=== PATIENT | female | born 1990 | race Hispanic/Latino ===

== ENCOUNTER 2016-09-10 03:27 | Outpatient (CLI) | payer OTHER ==
[~2016-09-10] VITALS: Ht 152.4 cm; Wt 69.0 kg
[2016-09-10 03:39] VITALS: BP 124/66
== END 2016-09-10 06:28 | disposition home or self-care (01) ==
LOC: M LDO 03:27
PROVIDERS: ATTEND Obstetrics & Gynecology
DX: O47.1 False labor at or after 37 completed weeks of gestation (principal); Z3A.37 37 weeks gestation of pregnancy

== ENCOUNTER 2016-09-13 12:01 | Inpatient (IN) | payer OTHER ==
[2016-09-13] VITALS (25 sets, daily range): BP systolic 97–151; BP diastolic 51–98
[~2016-09-13] VITALS: Ht 154.9 cm; Wt 63.0 kg
[2016-09-13] MEDS ORDERED: PRENTAB9 PO (12:23)
[2016-09-13] MEDS ORDERED: PENICILLIN G POTASSIUM IV 5 MU in D5W MINI-BAG PLUS 100 ML IV STA (12:40)
[2016-09-13] MEDS ORDERED: LACTATED RINGER'S 1000 ML IV STA (12:40)
[2016-09-13 13:58] LABS: MEAN CORPUSCULAR HEMOGLOBIN 27.6 pg (27.0-33.0); MEAN CORPUSCULAR HGB CONC 33.1 g/dl (32.0-36.5); MEAN CORPUSCULAR VOLUME 83.5 fl (80.0-96.0); RED CELL DISTRIBUTION WIDTH 14.2 % (11.5-14.5); WHITE BLOOD COUNT 23.1 K/mm3 (4.0-10.0)
[2016-09-13] MEDS ORDERED: FENTANYL 2MCG/ML ROPIVACAINE 0.2% NACL 250 ML CADD As Ordered ONE (14:11)
[2016-09-13] MEDS ORDERED: OXYTOCIN 30 UNITS IN 0.9% NaCl 500ML IV BAG (J2590) As Ordered ONE (14:19)
[2016-09-13] MEDS ORDERED: EPIDURAL/PCA KEYS XX PRN ×2 (15:15→21:15)
[2016-09-13] MEDS ORDERED: ONDANSETRON 4MG/2ML VIAL (J2405) IV PRN ×4 (15:15→21:45)
[2016-09-13] MEDS ORDERED: EPIDURAL COMMENT XX SCH (15:15)
[2016-09-13] MEDS ORDERED: diphenhydrAMINE INJ 50MG/ML VIAL (J1200) IV PRN ×2 (15:15→21:15)
[2016-09-13] MEDS ORDERED: ePHEDrine SULFATE 25 MG/5 ML(5MG/ML) SYRINGE IV PRN (15:15)
[2016-09-13] MEDS ORDERED: REFRIGERATOR IV KEYS XX PRN (15:15)
[2016-09-13] MEDS ORDERED: NALOXONE INJ 0.4 MG/1 ML VIAL (J2310) IV PRN ×2 (15:15→21:15)
[2016-09-13] MEDS ORDERED: FENTANYL/ROPIVACAINE/NACL CADD 250 ML EPIDURAL SCH (15:15)
[2016-09-13] MEDS ORDERED: LACTATED RINGER'S 1000 ML IV PRN (15:15)
[2016-09-13] MEDS ORDERED: ACETAMINOPHEN 500 MG TAB PO PRN (16:30)
[2016-09-13] MEDS ORDERED: PENICILLIN G POTASSIUM IV 2.5 MU in D5W 100 ML IV SCH (16:45)
[2016-09-13] MEDS ORDERED: BICITRA 30ML SOLN UDC As Ordered ONE (18:48)
[2016-09-13] MEDS ORDERED: ceFAZolin 2 GM/D5W 50 ML IV BAG (J0690) As Ordered ONE (18:48)
[2016-09-13] MEDS ORDERED: ONDANSETRON 4MG/2ML VIAL (J2405) As Ordered ONE (19:05)
[2016-09-13] MEDS ORDERED: fentaNYL 100 MCG/2 ML INJECTION (J3010) As Ordered ONE ×4 (19:05→21:15)
[2016-09-13] MEDS ORDERED: SUCCINYLCHOLINE 100 MG/5 ML SYRINGE (J0330) As Ordered ONE (19:05)
[2016-09-13] MEDS ORDERED: PROPOFOL 200 MG/20 ML VIAL As Ordered ONE (19:05)
[2016-09-13] MEDS ORDERED: MIDAZOLAM INJ 2 MG/2 ML VIAL (J2250) As Ordered ONE (19:05)
[2016-09-13] MEDS ORDERED: dexameTHASONE 4 MG/ML 1ML VIAL (J1100) As Ordered ONE (19:05)
[2016-09-13] MEDS ORDERED: OXYTOCIN INJ 10 UNITS/ML VIAL (J2590) As Ordered ONE (19:05)
[2016-09-13] MEDS ORDERED: ROCURONIUM BROMIDE 50 MG/5 ML VIAL As Ordered ONE (19:22)
[2016-09-13] MEDS ORDERED: BICITRA 30ML SOLN UDC PO STA (19:27)
[2016-09-13 19:39] LABS: CORD GAS ABE V -5.6; CORD GAS HCO3 V 21.9 MEQ/L; CORD GAS O2 SAT V 19.7 %; CORD GAS PCO2 V 50.7 mmHg; CORD GAS PH V 7.254 UNITS; CORD GAS PO2 V 13.6 mmHg; CORD GAS SBC V 18.2 MEQ/L; CORD GAS TCO2 V 23.5 MEQ/L
[2016-09-13] MEDS ORDERED: GLYCOPYRROLATE INJ 0.2 MG/ML 2 ML VIAL As Ordered ONE (20:04)
[2016-09-13] MEDS ORDERED: KETOROLAC 60 MG/2 ML VIAL (J1885) As Ordered ONE (20:04)
[2016-09-13] MEDS: LR 1,000 ML IV SCH (20:56)
[2016-09-13] MEDS ORDERED: METHYLERGONOVINE MALEATE 0.2 MG/ML VIAL (J2210) IM PRN (21:00)
[2016-09-13] MEDS ORDERED: MEASLES,MUMPS,RUBELLA VACCINE INJ (MMR-II) (90707) SC SCH (21:00)
[2016-09-13] MEDS ORDERED: PERCOCET 5MG/325MG TAB PO PRN (21:00)
[2016-09-13] MEDS: DOCUSATE SODIUM 100 MG CAP PO SCH (21:00)
[2016-09-13] MEDS ORDERED: PROMETHAZINE 25 MG TAB PO PRN (21:00)
[2016-09-13] MEDS ORDERED: RHOGAM 300 MCG (1500 IU) INJ (J2790) IM SCH (21:00)
[2016-09-13] MEDS ORDERED: NS 1,000 ML IV SCH (21:08)
[2016-09-13] MEDS ORDERED: MORPHINE PCA 1MG/ML 100ML CADD As Ordered ONE (21:08)
[2016-09-13] MEDS ORDERED: MORPHINE PCA 1MG/ML 100ML CADD IV PRN (21:15)
[2016-09-13] MEDS ORDERED: NALBUPHINE HCL 10 MG/ML AMP (J2300) IV PRN (21:15)
[2016-09-13] MEDS: fentaNYL 100 MCG/2 ML INJECTION (J3010) IV PRN ×4 (21:15→21:30)
[2016-09-13] MEDS ORDERED: LR 1,000 ML IV SCH (21:45)
[2016-09-13] MEDS ORDERED: MORPHINE 2 MG/ML 1ML SYRINGE IV PRN (21:45)
[2016-09-14] VITALS (14 sets, daily range): BP systolic 100–129; BP diastolic 51–63
[2016-09-14] MEDS: LR 1,000 ML IV SCH ×3 (01:58→20:56)
[2016-09-14] MEDS: KETOROLAC 30 MG/ML VIAL (J1885) IV SCH ×4 (01:58→20:49)
--- NOTE | 2016-09-14 02:09 | REP ---
Clinical: Stat section without appropriate instrument cannot. Technique: Portable views to include the abdomen and pelvis. Findings: Epidural catheter identified. Bowel gas pattern is normal. No radiodense or obvious radiolucent foreign body material appreciated. Impression: No foreign body identified. Signed by Marcel Pena MD 09/14/2016 02:00 A
[2016-09-14 07:25] LABS: MEAN CORPUSCULAR HEMOGLOBIN 27.4 pg (27.0-33.0); MEAN CORPUSCULAR HGB CONC 32.5 g/dl (32.0-36.5); MEAN CORPUSCULAR VOLUME 84.1 fl (80.0-96.0); RED CELL DISTRIBUTION WIDTH 14.5 % (11.5-14.5); WHITE BLOOD COUNT 22.3 K/mm3 (4.0-10.0)
--- NOTE | 2016-09-14 08:42 | IPNPDOC ---
Text Note Date of Service The patient was seen on 09/14/16 at 08:41. NOTE SBAR from Dr Camejo this AM at 0730. Pt is POD1 s/p uterine rupture during TOLAC and bladder rupture as well. Vitals stable, no low BP or elev'd HR 6.2/19.2 UO ~75/hr a/p: Doing well despite her current CBC. However with these low of numbers I rec 2 units PRBC's, pt agrees. Orders placed, CBC 4 hrs after transfusion complete. Sessions VS,Sanna, I+O VSSanna I+O Laboratory Tests 09/13/16 13:14 Red Blood Count 4.55, Mean Corpuscular Volume 83.5, Mean Corpuscular Hemoglobin 27.6, Mean Corpuscular Hemoglobin Concent 33.1, Red Cell Distribution Width 14.2 09/14/16 07:05 Red Blood Count 2.28 L, Mean Corpuscular Volume 84.1, Mean Corpuscular Hemoglobin 27.4, Mean Corpuscular Hemoglobin Concent 32.5, Red Cell Distribution Width 14.5 Vital Signs Date Time Temp Pulse Resp B/P Pulse Ox O2 Delivery O2 Flow Rate FiO2 09/14/16 05:40 98.1 82 18 120/57 100 Room Air 09/13/16 21:15 3.0 I&O- Last 24 Hours up to 6 AM 09/14/16 06:00 Intake Total 4000 ml Output Total 3485 ml Balance 515 ml JUSTINE,FIDEL Dye MD Sep 14, 2016 08:42
[2016-09-14] MEDS: PRENATAL VITAMIN TAB PO SCH (08:45)
[2016-09-14] MEDS: DOCUSATE SODIUM 100 MG CAP PO SCH ×2 (08:45→20:49)
[2016-09-14] MEDS ORDERED: NS 1,000 ML IV SCH (08:56)
[2016-09-14] MEDS ORDERED: diphenhydrAMINE 25 MG CAP PO ONE (09:30)
[2016-09-14] MEDS ORDERED: ACETAMINOPHEN 500 MG TAB PO ONE (09:30)
[2016-09-14 19:14] LABS: MEAN CORPUSCULAR HEMOGLOBIN 28.2 pg (27.0-33.0); MEAN CORPUSCULAR HGB CONC 32.4 g/dl (32.0-36.5); MEAN CORPUSCULAR VOLUME 87.1 fl (80.0-96.0); RED CELL DISTRIBUTION WIDTH 15.5 % (11.5-14.5); WHITE BLOOD COUNT 16.7 K/mm3 (4.0-10.0)
[2016-09-15 02:04] VITALS: BP 119/60
[2016-09-15] MEDS: AMPICILLIN SOD/SULBACTAM SOD 3 GM in D5W MINI-BAG PLUS 100 ML IV SCH ×4 (04:00→21:28)
[2016-09-15] MEDS: IBUPROFEN 800 MG TAB PO SCH ×3 (04:30→21:27)
[2016-09-15] MEDS: LR 1,000 ML IV SCH ×2 (04:40→09:10)
[2016-09-15 06:12] VITALS: BP 114/54
[2016-09-15 07:48] LABS: MEAN CORPUSCULAR HEMOGLOBIN 28.4 pg (27.0-33.0); MEAN CORPUSCULAR HGB CONC 33.3 g/dl (32.0-36.5); MEAN CORPUSCULAR VOLUME 85.2 fl (80.0-96.0); RED CELL DISTRIBUTION WIDTH 14.6 % (11.5-14.5); WHITE BLOOD COUNT 18.1 K/mm3 (4.0-10.0)
--- NOTE | 2016-09-15 08:17 | IPNPDOC ---
Text Note Date of Service The patient was seen on 09/15/16 at 08:11. NOTE POD#2 s/p RLTCS c/b uterine and bladder rupture s/p transfusion of 2 units PRBC's yesterday Fever first this AM: 0300: 101.2 0400: 100.5 0600: 100.7 PLacde on Unasyn 3 Gm q6 hrs until 24 hrs afebrile S: Pt feeling well. Pain well controlled, lochia decreasing/minimal, voiding via de luna catheter - blood tinged urine, tolerating a regular diet, ambulating without difficulty. No N/V/LOCKE/CP/LP/SOB. breast feeding. O: normotensive, nml HR H: RRR no m/g/r L: CTA b/l no w/c/r/r Abd: soft, appropriately tender, U-2/fundus nontender; dressing c/d/i with no strikethrough-removed Ext: no c/c/e post transfusion HCT yesterday evening was HCT29.5, DPA328. CBC this AM with HCT 26.1, PLT 191 A/P: S/p RLTCS c/b uterine and bladder rupture, POD#2 on UNasyn for fever, s/p 2 units PRBC's. Hemodynamically stable. -Will keep de luna catheter in place for next 2 weeks at least, to be seen in the clinic by Dr Camejo in 1-2 weeks, also on Macrobid and Pyridium while leg bag de luna in place. -No further CBC's needed for HD status -Cont the Unasyn until 24 hours afebrile -Routine postop care -will continue to monitor closely VS,Demarcoe, I+O VS, Fishbone, I+O Laboratory Tests 09/14/16 18:51 Red Blood Count 3.38 L, Mean Corpuscular Volume 87.1, Mean Corpuscular Hemoglobin 28.2, Mean Corpuscular Hemoglobin Concent 32.4, Red Cell Distribution Width 15.5 H 09/15/16 07:36 Red Blood Count 3.07 L, Mean Corpuscular Volume 85.2, Mean Corpuscular Hemoglobin 28.4, Mean Corpuscular Hemoglobin Concent 33.3, Red Cell Distribution Width 14.6 H Vital Signs Date Time Temp Pulse Resp B/P Pulse Ox O2 Delivery O2 Flow Rate FiO2 09/15/16 06:12 100.7 123 16 114/54 09/15/16 03:00 95 Room Air 09/13/16 21:15 3.0 I&O- Last 24 Hours up to 6 AM 09/15/16 06:00 Intake Total 3125 ml Output Total 5825 ml Balance -2700 ml SESSIONS,FIDEL Dye MD Sep 15, 2016 08:17
[2016-09-15] MEDS: PRENATAL VITAMIN TAB PO SCH (09:10)
[2016-09-15] MEDS: DOCUSATE SODIUM 100 MG CAP PO SCH ×2 (09:10→21:27)
[2016-09-15 10:00] VITALS: BP 110/65
[2016-09-15 14:00] VITALS: BP 124/58
[2016-09-15] MEDS: PERCOCET 5MG/325MG TAB PO PRN ×2 (16:21→21:26)
[2016-09-15 18:39] VITALS: BP 132/70
[2016-09-15 22:04] VITALS: BP 121/68
[2016-09-16 01:33] VITALS: BP 115/67
[2016-09-16] MEDS: PERCOCET 5MG/325MG TAB PO PRN ×2 (02:05→19:18)
[2016-09-16] MEDS: AMPICILLIN SOD/SULBACTAM SOD 3 GM in D5W MINI-BAG PLUS 100 ML IV SCH ×4 (04:00→21:30)
[2016-09-16] MEDS: IBUPROFEN 800 MG TAB PO SCH ×3 (04:00→21:06)
[2016-09-16 05:55] VITALS: BP 116/58
[2016-09-16 07:00] LABS: MEAN CORPUSCULAR HEMOGLOBIN 29.4 pg (27.0-33.0); MEAN CORPUSCULAR HGB CONC 33.8 g/dl (32.0-36.5); MEAN CORPUSCULAR VOLUME 86.8 fl (80.0-96.0); RED CELL DISTRIBUTION WIDTH 14.5 % (11.5-14.5); WHITE BLOOD COUNT 13.4 K/mm3 (4.0-10.0)
--- NOTE | 2016-09-16 09:30 | IPN ---
DATE: 09/16/2016 This lady had a repeat section after having a ruptured uterus and ruptured bladder. She received two units of blood transfusion because of a low hemoglobin. She spiked a temperature of above 101.2 and was placed on Unisom. The plan of management was to maintain the Ramos catheter, IV Unisom until 24 hours afebrile, mobilize, chest physiotherapy, incision check, sequentials on board while in bed, and we discontinued the Duramorph spinal and placed her on oral medication for pain management. This morning, she has been afebrile for 24 hours since 0600 hours. Her temperature presently is 96.2, pulse is 89, respirations are 16, and her blood pressure is 116/58. Her hemoglobin after two units of blood yesterday was 8.7, hematocrit 26.1, and platelets are 191. We are still waiting on her hemoglobin and hematocrit from today. She is presently mobilizing, oriented to three ramos, up and about. She still looks pale. She is not dizzy. She has no symptomatology of her anemia. She is normocephalic, atraumatic. Neck has full range of motion. Pupils are equal and reactive to light. Distal pulses are symmetric. No evidence of deep vein thrombosis (DVT), pulmonary embolism (PE), or superficial phlebitis. No wheezes or rhonchi. Chest is clear bilaterally to the bases. Abdomen is soft. Four quadrant bowel sounds are noted. Incision is clean and dry. Uterus is 2 below. She has no rashes, lesions, or pruritus. No arthralgia or myalgia. She is not complaining of a cough, wheeze, shortness of breath, or dyspnea on exertion. She has no chest pain. She is not bleeding. She is neurologically complete. Her Ramos catheter is draining urine with intermittently a bit of specks of blood which is consistent with a bladder repair. She has no nausea, vomiting, diarrhea, or constipation. The rest of the history is unremarkable. Our plan of management today is to train her about Ramos catheter maintenance and keeping it a sterile field. Continue with pain management, mobilize, and hopefully be able to allow her to go home tomorrow. We have discontinued the Unisom after 24 hours of being afebrile and the patient is to shower and planned on discharge for tomorrow morning. The patient's questions were answered regarding Ramos catheter which will be maintained for at least two weeks and she will prophylactic antibiotics for that period of time to cover her because of the bladder injury and the possibility of urinary tract infection from the surgical intervention.
[2016-09-16] MEDS: DOCUSATE SODIUM 100 MG CAP PO SCH ×2 (09:39→21:06)
[2016-09-16] MEDS: PRENATAL VITAMIN TAB PO SCH (09:39)
[2016-09-16 10:00] VITALS: BP 117/70
[2016-09-16 18:17] VITALS: BP 135/73
[2016-09-16 22:20] VITALS: BP 117/62
[2016-09-17 01:53] VITALS: BP 115/61
[2016-09-17] MEDS: AMPICILLIN SOD/SULBACTAM SOD 3 GM in D5W MINI-BAG PLUS 100 ML IV SCH ×2 (04:00→10:00)
[2016-09-17] MEDS: IBUPROFEN 800 MG TAB PO SCH ×2 (04:11→12:02)
[2016-09-17 05:38] VITALS: BP 119/77
[2016-09-17] MEDS: DOCUSATE SODIUM 100 MG CAP PO SCH (08:28)
[2016-09-17] MEDS: PRENATAL VITAMIN TAB PO SCH (08:29)
[2016-09-17] MEDS: PERCOCET 5MG/325MG TAB PO PRN (08:31)
[2016-09-17 10:00] VITALS: BP 114/69
[2016-09-17] MEDS ORDERED: OXYC1TAB23 PO (13:44)
[2016-09-17] MEDS ORDERED: COLA100C PO (13:44)
[2016-09-17] MEDS ORDERED: IBUP-1114 PO (13:44)
--- NOTE | 2016-09-17 13:50 | IPNPDOC ---
Text Note Date of Service The patient was seen on 09/17/16 at 13:38. NOTE POD#4 s/p RLTCS c/b uterine and bladder rupture during TOLAC S: Tracy has been doing well. Pain well controlled, lochia minimal, voiding via de luna catheter - clear, yellow urine, tolerating a regular diet, ambulating without difficulty. No N/V/LCOKE/CP/LP/SOB. Breast and bottle feeding. Received a blood transfusion with 2 units pRBCs on POD 1 followed by fevers on POD 2 for which she was treated with Unasyn until >24hr afebrile. She feels ready to go home today. Vitals wnl, afebrile General: WDWN, comfortably sitting and ambulating during visit Cardiac: S1S2 present with no murmurs Lungs: CTAB w/no wheezes/crackles Abdomen: soft, appropriately tender, U-2/fundus nontender; steris overlying pfannensteil incision are clean and dry, no erythema/induration/drainage Ext: no pain with palpation of calves 09/14 pre-transfusion Hgb 6.2 on 09/14 09/15: WBC 18.1, H/H 8.7/26.1, plt 191 09/16: WBC 13.4, H/H 8.3/24.5, plt 216 Assessment: Tracy is a 25yo doing well on POD 4 s/p RLTCS at 38wk performed for uterine/bladder rupture after presenting in labor desiring TOLAC. Post-op course complicated by Hgb 6.2 and symptomatic requiring transfusion of 2 units PRBC's, after which she had fevers and was then treated with unasyn until >24hr afebrile. Hemodynamically stable with no evidence of infection. De Luna still in place draining clear yellow urine. -Discharge home today with de luna leg bag, patient to be taught how to change out the bag -follow up with Dr. Camejo scheduled Sep 28 at 1045, in 2 weeks -Daily macrobid while de luna in place -Discharge meds also to include percocet, motrin, colace, lanolin Dr. Alyssa Finney MD [place], OBGYN VS,Fishbone, I+O VS, Fishbone, I+O Vital Signs Date Time Temp Pulse Resp B/P Pulse Ox O2 Delivery O2 Flow Rate FiO2 09/17/16 10:00 96.5 82 16 114/69 09/16/16 10:00 98 Room Air 09/13/16 21:15 3.0 I&O- Last 24 Hours up to 6 AM 09/17/16 06:00 Intake Total 720 ml Output Total 1200 ml Balance -480 ml ALYSSA FINNEY MD Sep 17, 2016 13:50
--- NOTE | 2016-09-17 13:58 | DS.PDOC ---
Discharge Summary General Date of Admission Sep 13, 2016 at 12:37 Date of Discharge Sep 17, 2016 Attending Physician: ALYSSA MATIAS MD Discharge Summary PROCEDURES PERFORMED DURING STAY: RLTCS with bladder repair COMPLICATIONS/CHIEF COMPLAINT: Active labor at term ADMISSION DIAGNOSES: 1. Active labor at term with history of prior section, desiring TOLAC DISCHARGE DIAGNOSES: 1. Active labor at term with history of prior section, desiring TOLAC 2. Uterine/bladder rupture with repair 3. hemorrhage requiring blood transfusion with 2 units packed red blood cells 4. Post-operative fevers treated with IV antibiotics until 24 hours afebrile HISTORY OF PRESENT ILLNESS/HOSPITAL COURSE: Tracy is a 25yo who underwent a repeat low transverse section 38 weeks when she experienced a uterine/bladder rupture after presenting in labor desiring trial of labor after . Post-operative course complicated by Hemoglobin of 6.2 that was symptomatic requiring transfusion of 2 units packed red blood cells, after which she had fevers and was then treated with unasyn IV antiobics until >24h hours afebrile. DISCHARGE MEDICATIONS: -Daily macrobid while de luna in place -Discharge meds also to include percocet, motrin, colace, lanolin ALLERGIES: Please see below. PHYSICAL EXAMINATION ON DISCHARGE: Vitals wnl, afebrile General: WDWN, comfortably sitting and ambulating during visit Cardiac: S1S2 present with no murmurs Lungs: CTAB w/no wheezes/crackles Abdomen: soft, appropriately tender, U-2/fundus nontender; steris overlying pfannensteil incision are clean and dry, no erythema/induration/drainage Ext: no pain with palpation of calves LABORATORY DATA: 09/14 pre-transfusion Hgb 6.2 on 09/14 09/15: WBC 18.1, H/H 8.7/26.1, plt 191 09/16: WBC 13.4, H/H 8.3/24.5, plt 216 IMAGING: none VTE Prophylaxis ordered?: none required DISCHARGE CONDITION: stable DISPOSITION: home ACTIVITY: ad manjinder, vaginal rest for 6 weeks DIET: regular diet DISCHARGE PLAN AND INSTRUCTIONS: -Discharge home today with de luna leg bag, patient to be taught how to change out the bag -follow up with Dr. Camejo scheduled Sep 28 at 1045, in 2 weeks TIME SPENT ON DISCHARGE: Greater than 30 minutes. Vital Signs/I&Os Vital Signs Date Time Temp Pulse Resp B/P Pulse Ox O2 Delivery O2 Flow Rate FiO2 09/17/16 10:00 96.5 82 16 114/69 09/16/16 10:00 98 Room Air 09/13/16 21:15 3.0 I&O- Last 24 Hours up to 6 AM 09/17/16 06:00 Intake Total 720 ml Output Total 1200 ml Balance -480 ml Medications Scheduled Multivitamins/ ( 27-0.8 mg) 1 Tab Tab 1 TAB PO DAILY Scheduled PRN Docusate Sodium (Colace) 100 Mg Cap 100 MG PO BIDP PRN PRN CONSTIPATION Ibuprofen (Ibuprofen) 400 Mg Tab 800 MG PO Q8HP PRN PRN PAIN Oxycodone/Acetaminophen (Oxycodone/Acetaminophen 5-325 mg) 1 Tab Tab 1 TAB PO Q4HP PRN PRN PAIN SCALE 1-5 Oxycodone/Acetaminophen (Oxycodone/Acetaminophen 5-325 mg) 1 Tab Tab 2 TAB PO Q4HP PRN PRN PAIN SCALE 6-10 Allergies Coded Allergies: No Known Drug Allergy (Verified Allergy, Unknown, 09/13/16) ALYSSA MATIAS MD Sep 17, 2016 13:54
--- NOTE | 2016-09-20 09:45 | RO ---
DATE OF PROCEDURE: 09/13/2016 PREOPERATIVE DIAGNOSES: 1. Uterine rupture. 2. History of prior low transverse section. 3. Failed trial of labor after section. POSTOPERATIVE DIAGNOSES: 1. Uterine rupture. 2. History of prior low transverse section. 3. Failed trial of labor after section. 4. Delivered. PROCEDURE PERFORMED: 1. Emergent repeat low transverse section. 2. Bladder rupture repaired. SURGEON: Mandi Camejo MD PLEATING MACHINE OPERATOR: Ravi Contreras MD ANESTHESIA: General endotracheal. ESTIMATED BLOOD LOSS (EBL): 700. URINE OUTPUT: Not recorded. INTRAVENOUS (IV) FLUIDS: 2900 mL. ANTIBIOTICS: Ancef 2 grams IV times one prior to skin incision. SPECIMEN: Placenta. COMPLICATIONS: Uterine rupture and bladder rupture. INDICATION: The patient is a 25-year-old, (G) 2, para (P) 1 who presented in active labor, at 7 cm, at 38 and 1 weeks' estimated gestational age, who was planning to have a repeat low transverse section, however opted for a trial of labor since she came into the hospital in active labor. Patient progressed to complete, complete, +1 and was attempting maternal expulsive efforts when she reported severe pain when previously her pain has been well controlled with epidural anesthesia. The patient was examined and noted to have a very, very tender abdomen on exam and was writhing in pain. Of note, the heart rate tracing was category 2 but overall reassuring and there was no change from the heart rate tracing at the time that she developed severe abdominal pain then from before that occurred. Given the patient's history of a prior low transverse section and this acute event of severe abdominal pain, the index of suspicion for uterine rupture was high and so the decision was made to proceed to the operating room (OR) with an emergent repeat low transverse section. FINDINGS: Upon entry into the peritoneal cavity, a large amount of blood was noted. The uterus and bladder were noted to be ruptured at this time with the shoulder visible at the defect in the uterus. There was a viable female . 9 and 9. Weight 3122 grams (6 pounds 14 ounces). After repair of the affected organs, there was normal uterus, tubes and ovaries noted bilaterally, and the bladder repair was noted to be watertight. DESCRIPTION OF PROCEDURE: The risks, benefits, indications and alternatives of the procedure were reviewed with the patient and informed consent was obtained on the way to the operating room. The patient was taken to the operating room where general anesthesia was induced at that time. She was then prepped and draped with splash Betadine prepped in the normal sterile fashion in the dorsal supine position with a leftward tilt. A Pfannenstiel skin incision was made with a scalpel and carried through to the underlying layer of fascia. The fascia was then entered, incised in the midline and the incision extended bluntly. The rectus muscles were and the peritoneum was entered bluntly. Upon entry, a large amount of blood was noted and there was a large defect, approximately 8 cm, noted in the lower uterine segment of the uterus, and there was also a large defect noted within the bladder as well right adjacent to this 8 cm defect in the uterus. The shoulder was then noted at that time. The infant's head delivered atraumatically in the occiput anterior (OA) position through the hysterotomy without difficulty. The nose and mouth were suctioned with a bulb syringe and the cord doubly clamped. The infant was then handed off to the waiting scheduling specialist. The placenta was then removed spontaneously with gentle traction on the umbilical cord. The uterus was then exteriorized and cleared of all clots and debris. The uterine defect was repaired with #0 Vicryl in a running locked fashion. A second layer of #0 Vicryl was then used to imbricate the hysterotomy. There was also noted to be a defect that extended down towards the right lateral aspect of the cervix, which was also repaired with #0 Vicryl in a running locked fashion. Attention was then turned to the bladder. At this point, noted to have an approximately 6 cm defect in it at the dome. Using a # 2-0 Vicryl, the bladder was repaired in two layers and was then subsequently back filled with sterile milk and noted to have a watertight seal. The area was irrigated. The bladder repair and the hysterotomy was observed to be hemostatic at this time. The uterus was then returned to the abdomen. The pericolic gutters were cleared of all clots and debris. The fascia was then reapproximated with #0 Vicryl in a running fashion. The subcutaneous layer was closed with #3-0 Vicryl in a running fashion. The skin was closed with #3-0 Monocryl on a Sotero needle in a subcuticular fashion. The incision was then dressed with Steri-Strips and a pressure dressing applied. At the completion of the case, bimanual exam performed with good uterine tone and minimal vaginal bleeding. The patient tolerated procedure well. Sponge, lap and needle counts were correct times three. The patient was taken to the recovery room in stable condition.
== END 2016-09-17 14:30 | disposition home or self-care (01) | DRG 765 ==
LOC: M LDO 12:01 → M LDI 12:37 → M OBS 21:50
PROVIDERS: ADMIT Obstetrics & Gynecology; ATTEND Obstetrics & Gynecology
PROC: 0TQB0ZZ Repair Bladder, Open Approach (ICD-10-PCS; 2016-09-13)
PROC: 10D00Z1 Extraction of Products of Conception, Low, Open Approach (ICD-10-PCS; principal; 2016-09-13 22:00)
PROC: 30233N1 Transfusion of Nonautologous Red Blood Cells into Peripheral Vein, Percutaneous Approach (ICD-10-PCS; 2016-09-14)
DX: O34.211 Maternal care for low transverse scar from previous cesarean delivery (principal); O71.1 Rupture of uterus during labor; O72.1 Other immediate postpartum hemorrhage; O71.5 Other obstetric injury to pelvic organs; Z37.0 Single live birth; Z3A.38 38 weeks gestation of pregnancy; R50.82 Postprocedural fever; O66.40 Failed trial of labor, unspecified

== ENCOUNTER → 2016-10-16 | Outpatient (CLI) | payer OTHER ==
[~2016-10-16] MED LIST: COLA100C PO; CYSTO-CONRAY II 17.2% 250ML VIAL (Q9958) As Ordered ONE; IBUP-1114 PO; OXYC1TAB23 PO; PRENTAB9 PO
--- NOTE | 2016-10-16 14:40 | REP ---
CYSTOGRAM: The procedure was performed under the direct supervision of Dr. Jimenez. The images were reviewed with Dr. Jimenez. The patient arrives in the department with an existing indwelling Ramos catheter. 200 mL of Cysto-Conray II was instilled into the bladder in a retrograde flow. In the anterior-superior right aspect of the bladder, there is a tubular-shaped bladder contour with irregularity at the superior aspect which likely represents postsurgical changes and scarring. There is a defect at the superior dome of the bladder which likely represents scarring. Postvoid film shows near complete emptying of the bladder with the Ramos catheter in place. There is no evidence of extravasation. IMPRESSION: At the anterior-superior right aspect of the bladder, there is a tubular-shaped bladder contour with irregularity at the superior aspect which likely represents postsurgical changes and/or scarring. There is irregularity at the superior dome of the bladder as well, which likely represents scarring. There is no evidence of extravasation. 30 seconds of fluoroscopy time was utilized for this procedure. Reviewed by MARLON Tinoco 10/16/2016 04:33 PEdited and Signed by Sean Jimenez MD 10/16/2016 05:26 P
== END ==
LOC: M RADPRO 12:43
PROVIDERS: ATTEND Obstetrics & Gynecology
DX: N32.89 Other specified disorders of bladder (principal); S37.69 Other injury of uterus; X58.XXXD Exposure to other specified factors, subsequent encounter
CPT/HCPCS: 51610; 74430; Q9958